=== PATIENT | male | born 1950 | race Caucasian/White ===

== ENCOUNTER 2022-06-01 09:06 | Observation (INO) | payer MEDICARE, OTHER ==
[~2022-06-01] VITALS: Ht 182.9 cm; Wt 127.3 kg
[~2022-06-01 09:06] MED LIST: ALLOPURINOL300 MG PO; AMLODIPINE BESY10 MG PO; ATORVASTATIN CA40 MG PO; COLACE100 MG PO; GLIMEPIRIDE4 MG PO; LISINOPRIL40 MG PO; METFORMIN HCL1000 MG PO; NORCO 5-325 TA1 EACH PO; PIOGLITAZONE HC30 MG PO; TORSEMIDE20 MG PO; WARFARIN SODIUM2 MG PO
--- NOTE | 2022-06-01 12:22 | NUR ---
NURSE HANDOFF AT BEDSIDE IN ER, MALI PAYNE ANSWERED ALL QUESTIONS AND CONCERNS. PERFORMED TWO PERSON SKIN CHECK. TRANSFERED PATIENT TO ROOM 119 MED SURG BY ZAYDA ON HEART MONITOR. TITRATED PATIENT TO 4L DURING ACTIITY OXYGEN SATURATION 90% ON OXIMASK. PATIENT ABLE TO TRANSFER AND TOLERATE ACTIVITY MOVING OVER TO BED. LAB IN ROOM DRAWING REPEAT LACTIC ACID. PATIENT VOIDED 200 ML OF CLEAR URINE IN URINAL, STANDING WEIGHT 135.1 KG. PATIENT IS HAS PACEMAKER AND DOES NOT APPEAR TO BE IN RESPIRATORY DISTRESS, BREATHING EASY AND REGULAR. THIS NURSE TO RESUME CARE.
[2022-06-01] MEDS ORDERED: ADULT ASPIRIN R81 MG PO (12:34)
[2022-06-01] MEDS ORDERED: VITAMIN D3125 MCG PO (12:35)
[2022-06-01] MEDS ORDERED: METHYL B12-MET1 EACH PO (12:36)
--- NOTE | 2022-06-01 14:14 | NUR ---
CALLED DR. VELEZ VERIFIED PATIENT IS TO BE ON FLUID RESTRICTION. DR. VELEZ VERBALIZED WOULD ADD THE ORDER. PATIENT UP TO BATHROOM VOIDED 800 ML, STEADY ON FEET AND AGREES TO CALL BEFORE GOING TO THE BATHROOM. ORIENTED PATIENT TO ROOM. CBG 198 ADMINISTERED 3 UNITS OF INSULIN, PATIENT ATE 100% OF LUNCH. PROVIDED EDUCATION WITH CHF AND PLAN OF CARE, THE REASOING FOR CLOSER GLUCOSE MANAGEMENT, AND ANSERED QUESTIONS AND CONCERNS OF DAUGHTER IN LAW AND NAZ. PLANS TO BRING IN CPAP FROM HOME THIS EVENING. PATIENT ON TELE 6, PACED RYTHYM. CONTINIOUS 02 MONITORING 02 SATURATION 92% ON 3L NC. PATIENT DOES GET SOB WITH ACTIVITY, INCREASED OXYGEN TO 4L WHILE UP IN THE BATHROOM, THEN PATIENT TAKES A COUPLE OF MINUTES AT THE BEDSIDE TO RECOVER.
[2022-06-01] MEDS ORDERED: POTASSIUM CHLO10 ME2 PO (14:15)
[2022-06-01] MEDS ORDERED: FUROSEMIDE20 MG PO (14:15)
--- NOTE | 2022-06-01 14:51 | NUR ---
PATIENT UP TO BATHROOM AND BACK TO BED, SBA. PATIENT TOLERATED TRANSFER WELL. FAMILY IN ROOM. CALL LIGHT IN REACH. NO FURTHER NEEDS AT THIS TIME.
--- NOTE | 2022-06-01 15:28 | NUR ---
MED REC COMPLETE
--- NOTE | 2022-06-01 19:32 | EKG ---
[facility] [address] [place] [address] Signed Ventricular-paced rhythm with frequent premature ventricular complexes Abnormal ECG No previous ECGs available Confirmed by Mart Santos MD () on 06/01/2022 7:32:37 PM Electronically Signed By: MART SANTOS MD 06/01/221931 PATIENT NAME: ELAINA WALLER Electrocardiogram DATE OF : 48 PHYSICIAN: MART SANTOS MD REPORT #: [id number] REPORT IS CONFIDENTIAL AND NOT TO BE RELEASED WITHOUT AUTHORIZATION
--- NOTE | 2022-06-01 20:08 | NUR ---
Report received from Geena at shift change. Pt has tele box # 6 and pacer spikes are noted. He is currently sleeping and has BIPAP on. RT is in to check on pt. Pt has fluid restriction posted. He has his call light in reach and urinal is at bedside.
--- NOTE | 2022-06-01 20:11 | NUR ---
ROOM CPOX IN PLACE, READING 96%. SIDE RAIL PLACED UP, PT HAD HIS RIGHT ARM DANGLING OVER BED. LARGE BODIED MAN; DID NOT WAKE WHILE THIS RM IN ROOM.
--- NOTE | 2022-06-01 20:35 | NUR ---
pt RESTING IN BED WITH EYES CLOSED. BIPAP ON. pt OPENS EYES TO VOICE BRIEFLY, NODS HEAD IN AGREEMENT THAT HE IS TIRED. ASSESSMENT COMPLETE BY KERRY VAUGHAN. pt EDUCATED SILK SCREEN REPAIRER LIGHT FUNCTION, PLACED UNDER LEFT HAND. pt GRABS CALL LIGHT IN HAND. VSS. HR 64, ON TELE 6, PACED RHYTHM. ROOM CPOX APPLIED. BED ALARM ON.
--- NOTE | 2022-06-01 22:56 | NUR ---
CHECKED ON pt. RESTING IN BED WITH EYES CLOSED, RR 18. BIPAP ON. HR 62 ON TELE 6.
--- NOTE | 2022-06-01 23:26 | NUR ---
CALL LIGHT ANSWERED. SBA TO RESTROOM FOR VOID, 800 MLS. BACK TO BED. 5L OXYGEN BY NC IN PLACE WITH AMBULATION, SPO2 93%. ASSESSMENT COMPLETE BY THIS RN. pt DENIES PAIN. BIPAP BACK ON. EDUCATION PROVIDED. BED ALARM ON FOR PATIENT SAFETY. CALL LIGHT IN REACH.
--- NOTE | 2022-06-02 00:50 | NUR ---
Pt appears to be sleeping quietlly in bed. Call light in reach. Pt has BIPAP on and is tolerating this well. Sats are 95 to 96 %.Bed is in low position. Bed alarm is on.
--- NOTE | 2022-06-02 03:56 | NUR ---
Pt sats are 98% on BIPAP. Pt has tolerated the BIPAP well this shift. He is able to sleep. Call light in reach, bed alarm is on, bed is in pow position. No needs at this time.
--- NOTE | 2022-06-02 04:36 | NUR ---
Pt called to go to the bathroom. He was taken off BIPAP and placed on 5 L oxygen via NC. He stated he felt better , denied any dizziness or weakness. Feels he is close to his baseline. Pt voided 700 mls clear urine. wants to be off BIPAP as this is his usual time to be awake. wants to watch TV. Pt is assisted back to bed. call light in reach. Will use call light for further needs.
--- NOTE | 2022-06-02 06:35 | NUR ---
Pt is given a menu with his 60 gram Carb diet along with an explanation of how to order and carb choices. He was assisted with phoning dietary with questions.
--- NOTE | 2022-06-02 06:38 | NUR ---
Pt states he feels he is close to his baseline . He is able to ambulate to the bathroom and back to bed on 5 L of oxygen via NC. Pt denies any SOB. He was given a menu with his 60 gram carb diet choices and was able to make choices based on the menu. Pt tolerated the BIPAP well , was able to sleep through the night. He states he feels rested this am. Pt's wt is down 4.1 kg this am.
--- NOTE | 2022-06-02 07:21 | NUR ---
REPORT RECEIVED FROM KERRY VAUGHAN. PT RESTING IN BED, AWAKE AND ALERT, IN SEMIFOWER POSITION WITH HEAD OF BED AT 15 DEGREES. PT DENIES PAIN AND NAUSEA. OXYGEN SATURATION 90-93% ON 3.5L O2 BY NC. PT DENIES REQUESTS OR COMPLAINTS AT THIS TIME. CALL LIGHT WITHIN REACH. BED RAILS UP.
--- NOTE | 2022-06-02 07:38 | NUR ---
MORNING ASSESSMENT AND MEDICAITON DUE. PT UP TO RESTROOM WITH STAND BY ASSIST. TOLEARTES AMBULATION WELL WITH OXGYEN SATURATIONS MAINTAINING ABOVE 90% ON 3.5L O2 BY NC. PT DENIES SHORTNESS OF BREATH WITH ACTIVITY AND REPORTS "I FEEL SO MUCH BETTER THAN YESTERDAY." PT VOIDS 700ML CLEAR YELLOW URINE, KATHARINE CARE PER PT. STAND BY ASSIST UP TO CHAIR. PT ALERT AND ORIENTED TO ALL. LUNG SOUNDS CLEAR IN UPPER LOBES. OCCATIONAL CRACKELS HEARD IN LOWER LOBES. I.S. PROVIDED. PT DEMONSTRATES USE RECHING 1200ML X5. PT WEANED TO 3L O2 BY NC WITH OXGYEN SATURATIONS 90-94%. HEART TONES REMAIN IRREGULAR. PACED RYTHEM IN THE 60'S REMAINS ON TELEMETRY MONITORING. HEART FAILURE EDUCATION DONE WITH PT INCLUDING DAILY WEIGHTS AND RED/YELLOW/GREEN ZONES. PT DEMONSTRATES UNDERSTANDING STATING HE IS IN THE "YELLOW" ZONE TODAY. RECORD SHEET STARTED WITH PT. PT DENIES PAIN AND NAUSEA THIS MORNING. NEUROPATHY UNCHANGED. +3 PITTING EDMEA REMAINS IN RIGHT LOWER EXTREMITY AND FOOT. +1 PITTING EDEMA IN LEFT LOWER EXTREMITY. BOWEL TONES ACTIVE. ABDOMEN SOFT AND NON TEDNER. PTS ARRIVED AT BEDSIDE. PT UP TO CHAIR FOR BREAFKAST. CALL LIGHT WITHIN REACH. NO ADDITIONAL REQUESTS OR COMPLAINTS. CALL LIGHT WITHIN REACH.
--- NOTE | 2022-06-02 09:27 | NUR ---
THIS RN TO ROOM TO CHECK ON PT. PT REMAINS UP TO CHAIR. TOLERATING 3L O2 BY NC WITH OXGYEN SATURATIONS OF 93%. HEART RATE PACED AND IN THE 60'S. ADDITIONAL EDUCATION DONE WITH PT AND REGARDING HEART FAILURE EXACEBATIONS AND CONTROLING SYMPTOMS AT HOME. PT AND VERBALIZE UNDERSTANDING AND STATE THEIR QUESTIONS HAVE BEEN ANSWERED. PT DENIES PAIN AND NASUEA. NO ADDITIONAL REQUESTS OR COMPLAINTS. CALL LIGHT WITHIN REACH.
--- NOTE | 2022-06-02 09:49 | NUR ---
PATIENT SITTING UP IN CHAIR WATCHING TV AT THIS TIME. IN ROOM. VITALS AND I&O'S DONE. SHOWER OFFERED, PATIENT SAID NOT RIGHT NOW BUT HE WILL LET ME KNOW. CALL LIGHT IN REACH. NO FURTHER NEEDS AT THIS TIME.
--- NOTE | 2022-06-02 10:18 | NUR ---
THIS RN TO ROOM TO CHECK ON PT. PT TOLERATING 3L O2 BY NC WITH OXGYEN SATUARTIONS OF 93%. PT UP TO RESTROOM WITH STAND BY ASSIST. PT VOIDS WITH OUT ISSUE. KATHARINE CARE PER PT. STAND BY ASSIST BACK TO BED PER PT REQUEST. PT DENIES ADDITIOANL REQUESTS OR COMPLAINTS. CALL LIGHT WITHIN REACH. BED RAILS UP. PTS READING HEART FAILURE EDUCATIONAL PACKET.
--- NOTE | 2022-06-02 11:09 | NUR ---
THIS RN TO ROOM TO CHECK ON PT. PT VISITING WITH BOTTLE HOUSE QUALITY CONTROL TECHNICIAN. OXGYEN SATURATIONS 92% ON 3L O2 BY NC. HEAR TRATE 60-70'S PACED ON TELEMETRY MONITROING. PT DENIES PAIN AND NAUSEA. NO REQUESTS OR COMPLAINTS AT THIS TIME. CALL LIGHT WITHIN REACH. BED RAILS UP.
--- NOTE | 2022-06-02 12:15 | NUR ---
LUNCH DELIVERED TO PT. PT DECLINES TIME UP TO CHAIR FOR LUNCH. EATING IN BED WITH HEAD OF BED ELEVATED TO 51 DEGREES. PT DENIES PAIN AND NAUSEA. PT DENEIS SHORTNESS OF BREATH. 3L O2 BY NC REMAINS IN PLACE WITH OXGYEN SATURATIONS OF 90-93%. PT DENIES ADDITIONAL REQUESTS OR COMPLAINTS. MEDICATION GIVEN. CALL LIGHT WIHTIN REACH.
--- NOTE | 2022-06-02 13:21 | NUR ---
PATIENT SITTING IN RECLINER, TV IS ON. KERRY LONG IS PUTTING LOTION ON PATIENT'S FEET. PATIENT'S IS NOT HERE AT THIS TIME. WILL STOP BACK AROUND 3 PM THIS AFTERNOON TO SEE IF SHE IS HERE SO I CAN PROVIDE DIETARY EDUCATION FOR CHF AND DIABETES.
--- NOTE | 2022-06-02 13:25 | NUR ---
AFTERNOON ASSESSMENT DUE. PT CALL LIGHT ON. PT REPORTS HE IS UP ON HIS OWN IN THE ROOM AND TANGLED IN HIS CORDS. THIS RN TO ROOM. PT UNTANGLED AND ASSISTED UP TO CHAIR. FALL PROTOCOL AND PRECAUTIONS REVIEWED WITH PT. PT VERBALIZES UNDERSTANDING AND STATES HE WILL CALL IN THE FUTURE. PT DENIES PAIN AND NAUSEA. PT DENIES SHORTNESS OF BREATH "EXCEPT WHEN I MOVE ARROUND A LOT." PT REPORTS "I SURE AM A LOT BETTER THAN WHEN I CAME IN." BASELINE NEUROPATHY UNCHANGED. FEET NOTED TO BE VERY DRY. LOTION APPLIED BILATERLLY TO FEET. +2 PITTING EDEMA NOTED IN RIGHT LEG, +1 IN LEFT LEG, IMPROVING. LUNG SOUNDS NOW CLEAR THROGHOUT. PT CONTINUES TOLERATING 3L O2 BY NC WITH OXGYEN SATUARTIONS 90-94%. PACED RYTHEM CONTINUES ON TELEMETRY MONITORING WITH HR IN THE 60'S. GOOD VOIDING RESPONS FROM LASIX WITH MORE THAN 2000ML SO FAR THIS SHIFT. TIFFANIE, DIETARY EDUCATOR AND INSTALLATION SPECIALIST TO BEDSIDE TO REVIEW LOW SALT DIET WITH PT. PT REQUESTS SHE RETURN WHEN HIS IS BACK THIS AFTERNOON. SHOWER PLANNED FOR THIS AFTERNOON. PT DENIES ADDITIONAL REQUESTS OR COMPLAINTS. PT REACHES 2000ML X5 ON I.S. CALL LIGHT WITHIN REACH.
--- NOTE | 2022-06-02 14:17 | NUR ---
PT ALERT, ORIENTED AND LAYING IN BED WATCHING TV. PT FEELING BETTER, SAID HE DID IT TO HIMSELF,WILL WORK TO NOT LET THIS HAPPEN AGAIN. PT UNDERSTANDS POC HAS NO QUESTIONS. PT REQUESTED PRAYER, GAVE G.POST AND BLESSING. WILL FOLLOW
--- NOTE | 2022-06-02 14:47 | NUR ---
THIS RN TO ROOM TO CHECK ON PT. PT REMAILS UP TO CHAIR, WATCHING TV. OXGYEN SATUATION OF 95% ON 3L O2 BY NC. PT WEANED TO 2L O2 BY NC WITH OXGYEN SATURATIONS REMAINING ABOVE 90%, CURRENTLY 94%. PT DENEIS PAIN AND NAUSEA. NO ADDITONAL REQUESTS OR COMPLAINTS. CALL LIGHT WITHIN REACH.
--- NOTE | 2022-06-02 15:42 | NUR ---
PT CALL LIGHT ON. PT REQUESTS ASSISTANCE UP TO RESTROOM. STAND BY ASSIST UP TO RESTROOM. PT VOIDS 600ML WITH OUT ISSUE. KATHARINE CARE PER PT. PT NOT TO DESATURATE FO 84% ON 2L O2 WITH ACTIVITY. PT INCREASED TO 4L O2 WITH ACTIVITY. ONCE RECOVERD PT TOLEARTES 2L O2 BY NC WITH OXGYEN SATURATIONS ABOVE 90%. PT REPORTS HE IS READY FOR HIS SHOWER. IV COVERED. PT UP TO SHOWER, SITTING ON SHOWER CHAIR. INDEPENDANT IN SHOWER. FRESH CLOTHES PROVIDED BY FAMILY. NO ADDITIONAL REQUESTS OR COMPLAINTS. CALL LIGHT WITHIN REACH.
--- NOTE | 2022-06-02 15:48 | NUR ---
PATIENT'S IS NOW HERE. THEY ARE BOTH READY FOR SOME DIET EDUCATION. NAZ STATES SHE WILL EAT FRUITS AND VEGGIES BUT HUANG OFTEN DOESN'T. HE LIKES THEM BUT HE WOULD CHOOSE THE COSTCO MUFFIN, SYKES BURRITOS, CHIPS AND SALSA OR COOKIES INSTEAD. I PROVIDED A FOLDER WITH LOW-SODIUM GUIDELINES, HOW TO FLAVOR FOODS WITHOUT SALT, LOW-SODIUM DIABETES SNACK LIST, SAMPLE 1 -DAY MENU, AND LOW-SODIUM RECIPES. EXPLAINED HOW TO READ FOOD LABELS MAKING SURE TO BE AWARE OF THE SERVING SIZE ON THE PACKAGE AND HOW MUCH HE IS CONSUMING. DISCUSSED CHOOSING SMALLER AMOUNTS OF CERTAIN THINGS OR WHICH FOODS HE CAN SWAP TO SAVE SODIUM. HE SAID HE CAN CUT DOWN ON THE AMOUNT OF COSTCO MUFFINS HE CONSUMES, EAT LESS SYKES BURRITOS, AND USE CORN TORTILLAS INSTEAD OF FLOUR. IT WILL TAKE TIME FOR HIM TO CHANGE HIS HABITS, BUT HE IS WILLING TO GET STARTED WITH EATING BETTER. MY CARD IS PROVIDED IN CASE QUESTIONS ARISE IN THE FUTURE.
--- NOTE | 2022-06-02 16:05 | NUR ---
PT FINISHED WITH SHOWER. FRESH NON SKID STOCKS IN PLACE. NEW TELEMETRY LEADS PLACED. NEW PULSE OX STICKER IN PLACE. PT WEANED BACK TO 2L O2 BY NC. PT DEMONSRATES USE OF I.S. REACHING 2000ML X5. PTS REMAINS AT BEDSIDE. NO ADDITIONAL REQUESTS OR COMPLAINTS. CALL LIGHT WITHIN REACH. BED RAILS UP.
--- NOTE | 2022-06-02 16:41 | NUR ---
PT HERE FOR CHF EXACERBATION. PT UP TO RESTROOM, CHAIR AND SHOWER THIS SHIFT WITH STAND BY TO ONE PERSON ASSIST. PT TOELRATING 60G CARB DIET WITH EXCELLENT APPTITIE. BLOOD SUGAR CHECKS WITH MEALS WITH SLIDING SCALE INSULIN GIVEN. DAILY WEIGHTS TAKEN, IMPROVING. IV LASIX GIVEN WITH GOOD RESULTS. PT WEANED TO 2L O2 BY NC THIS SHIFT, NEEDS 4-6 WITH ACITVITIES. I.S. PROVIDED AND PT DEMONSRATEING USE REACHING 2000ML. LUNG SOUNDS IMPROVING. EDEMA TO BLE IMPROVING, NOW +2 IN RLE AND +1 IN LLE. BIPAP AT BEDSIDE FOR USE AT NIGHT. PACED RYTHEM NOTED ON GENERAL FORECASTER THROUGHOUT SHIFT. EXTENSIVE EDUCATION DONE WITH PT AND FAMILY RELATED TO HEART FAILURE AND DIABETES. PT USES CALL LIGHT AND MAKES NEEDS KNOWN.
--- NOTE | 2022-06-02 16:45 | NUR ---
Spoke with pt and his . They live in a house in [place] without steps. Pt denies issues getting in and out of the home. He does not use use DME, except for a CPAP. does all house hold chores, shopping cooking, cleaning. 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 They both drive. The deny financial issues but state concern for the future and SS. Pt plans on dc to home when cleared medically, will drive him.
--- NOTE | 2022-06-02 17:03 | NUR ---
DINNER DELIVERED TO PT. PT REMAINS UP TO CHAIR TO EAT. PT TOELRATING 2L O2 BY NC WITH OXGYEN SATURATIONS OF 93%. MEDICATION GIVEN. IV FLUSHED AND SALINE LOCKED WITH ALCOHOL CAP APPLIED. PT DENIES PAIN AND NAUSEA. NO ADDITIONAL REQUESTS OR COMPLAINTS. PTS AT BEDSIDE. CALL LIGHT WITHIN REACH.
--- NOTE | 2022-06-02 18:25 | NUR ---
THIS RN TO ROOM TO CHECK ON PT. PT REMAINS UP TO CHAIR. PT VERBLAIZES UNDERSTANDING OF EDUCATION DONE BY SECURITY EXPERT (TIFFANIE) BY TALKING ABOUT NEW FOODS HE WILL EAT AT HOME. OXGYEN SATURATION NOW 94% ON 2L O2 BY NC. PT DENIES PAIN AND NAUSEA. RED/YELLOW/GREEN ZONES REVIEWED WITH PT AND PT REMINDED TO FILL OUT HIS RECORD SHEET IN THE MORNING. PT DENIES ADDITIONAL REQUESTS OR COMPLAINTS. CALL LIGHT WITHIN REACH. PTS AT BEDSIDE.
--- NOTE | 2022-06-02 20:24 | NUR ---
Pt is sitting up in his chair. He feels better tonight. He is using his IS to 1500 and understands the benefit. Oxygen sat is 94 % on 2 L per nc. he knows to call for assist, call light is in reach. Pt states he will use his BIPAP to night as long as he is able. No further needs.
--- NOTE | 2022-06-02 22:35 | NUR ---
Pt assisted up to the bathroom to void. When back to bed he found he was not comfortable with the BIPAP mask. RT was called and a new , larger mask was fitted along with the addition of humidity. Pt will try to keep the BIPAP on as his sats are 100 %. Call light in reach. lights out.
--- NOTE | 2022-06-02 22:41 | NUR ---
Pt was not given the long acting insulin as he did not quite understand why he should have it. He doess take oral diabetic medications. May wish to talk to the Dr about it.
--- NOTE | 2022-06-03 01:22 | NUR ---
Pt's tele monitor was showing heart rate in 40's. Checked pt who is sleeing on his left side. Pulse on room monitor and by palpation was 60's. CCU notified. Pt sleeping soundly.
--- NOTE | 2022-06-03 04:02 | NUR ---
Pt is an early riser. He was taken off his home CPAP and placed on a NC at 4 L. He is up to his chair. O2 sats are 93 %.He has the final 200 mls of allowable water on his table. Call light in reach.
--- NOTE | 2022-06-03 05:15 | NUR ---
PT SITTING UP IN CHAIR. VITALS AND IS AND OS COMPLETE. NO NEEDS AT THIS TIME. CALL LIGHT WITHIN REACH
--- NOTE | 2022-06-03 05:40 | NUR ---
Pt's weight is down to 127.3 kg this am. He is on O2 at 2 L per nc. Pt is ambulating safely in room, is back to his home baseline in that respect. Pt is taking home the 60 gram carb diet menu and is beginning to see appropriate foods and quantities. He has adhered to his fluid restriction. Pt is hoping to go home today.
--- NOTE | 2022-06-03 07:30 | NUR ---
RECEIVED SHIFT REPORT FROM RN. PT SITTING IN RECLINER, AWAKE, FEET ELEVATED. PT HAS NO COMPLAINTS AT THIS TIME. SPO2 96% ON 2L, TITRATED TO 1L AT THIS TIME. CALL LIGHT WITHIN REACH.
--- NOTE | 2022-06-03 08:30 | NUR ---
Spoke with Brady. He states he is doing well, he just finished breakfast. He plans on going home as he states he is at his baseline. He has a POLST at the bedside marked comfort care only. Attempted to discuss this with the pt. He states his and daughter filled it out. Let him know I will ask Dr. Castellanos to speak with him.
--- NOTE | 2022-06-03 08:55 | NUR ---
MORNING ASSESSMENT COMPLETE. PT SITTING UP IN RECLINER, AWAKE. LUNG SOUNDS CLEAR IN ALL LOBES, BREATHING EVEN AND UNLABORD. EDEMA IN RLE 2+, LLE 1+. STATES CHRONIC NUMBNESS IN BLE. SPO2 95% ON 1L, TITRATED TO RA SPO2 92% AT THIS TIME. MD IN ROOM TO ASSESS PT. MAG ADMINISTERING AT THIS TIME. CALL LIGHT WITHIN REACH.
--- NOTE | 2022-06-03 09:49 | NUR ---
VERBAL ORDER DR. SANTOS/ Jessie ONEIL, RN, TO DC TELEMETRY.
--- NOTE | 2022-06-03 13:09 | NUR ---
PT SITTING CHAIR USING BREATHING TRMT. PT READY TO DC, HIS NAZ CAME TO TAKE HIM HOME. PT FEELS MUCH BETTER, NO O2 IN USE. PT AND NAZ BOTH THANKED ME FOR TIME SPENT WITH THEM. ENCOURAGED BOTH TO LET FAMILY DRIVE THEM TO HIS APPT IN [place] TO SEE SENIOR RESEARCH PROJECT MANAGER. BOTH ACKNOWLEDGED-SORT OF. GAVE BLESSING
== END 2022-06-03 12:20 | disposition home or self-care (01) ==
LOC: ED 09:06 → MS 09:08
PROVIDERS: ADMIT Family Medicine; ATTEND Family Medicine
DX: I11.0 Hypertensive heart disease with heart failure (principal); I48.91 Unspecified atrial fibrillation; E78.5 Hyperlipidemia, unspecified; I25.10 Atherosclerotic heart disease of native coronary artery without angina pectoris; Z20.822 Contact with and (suspected) exposure to COVID-19; I50.9 Heart failure, unspecified; J96.01 Acute respiratory failure with hypoxia; E11.9 Type 2 diabetes mellitus without complications; E83.42 Hypomagnesemia
CPT/HCPCS: 36415; 71045; 80053; 81003; 82803; 83605; 83735; 83880; 84100; 84484; 85025; 85610; 87502; 93005; 93010; 94660; 94760; 94761; 94762; 96372; 96375; 96376; C9803; G0378; J0696; J1650; J1815; J1940; J3475; U0003